=== PATIENT | male | born 1975 | race Caucasian/White ===

== ENCOUNTER 2021-11-12 08:06 | Outpatient (REF) | payer OTHER, SELFPAY ==
[2021-11-12 11:19] LABS: Alanine Aminotransferase 22 U/L (0-40); Albumin Level 4.1 g/dL (3.5-5.0); Alkaline Phosphatase 40 U/L (39-117); Anion Gap 10 (12-20); Aspartate Amino Transferase 16 U/L (5-37); Bilirubin Total 0.5 mg/dL (0.0-1.0); Blood Urea Nitrogen 15 mg/dL (9-16); Calcium 9.3 mg/dL (8.4-10.2); Carbon Dioxide 29 mmol/L (22-29); Chloride 104 mmol/L (96-108); Cholesterol 237 mg/dL; Estimated Glomerular Filt Rate > 60; Glucose Fasting 104 mg/dL (60-99); HDL Cholesterol 46 mg/dL; LDL Cholesterol Calculated 152 mg/dl; Potassium 4.4 mmol/L (3.3-5.1); Sodium 139 mmol/L (135-145); Total Protein 6.8 g/dL (6.5-8.0); Triglycerides 198 mg/dL
[2021-11-12 11:28] LABS: TSH reflex Free T4 1.06 uIU/mL (0.32-4.0)
[2021-11-12 12:30] LABS: Prostate Specific Antigen Scr 0.38 ng/mL (<0.05-4.0)
== END 2021-11-12 08:07 | disposition home or self-care (01) ==
LOC: HO.WFDLDS 08:06
PROVIDERS: Visit Provider Family Medicine
DX: Z00.00 Encounter for general adult medical examination without abnormal findings (principal); Z12.5 Encounter for screening for malignant neoplasm of prostate
CPT/HCPCS: 36415; 80053; 80061; 84153; 84443

== ENCOUNTER 2023-10-18 08:34 | Outpatient (AMB) | payer OTHER, SELFPAY ==
--- NOTE | 2023-10-18 08:37 | MHC.PC.OV ---
Vital Signs 10/18/23 08:38 Height 5 ft 11 in Weight 190 lb 4 oz BMI 26.5 BP 124/78 Blood Pressure Location Rt brachial Position Sitting Respiration 13 Pulse 76 Pulse Source Pulse Oximeter Temp 98 F Temp Source Temporal Artery Scan Pulse Oximetry (%) 97 Oxygen Delivery Method Room Air Intake Visit Reasons: Annual PE Yacht Hand Required: No Accompanied by: Self / Same As Patient Allergies No Known Allergies Allergy (Verified 10/18/23 08:51) Tobacco use date assessed: 10/18/23 Dental Screening Dental Screen Date: 10/18/23 Did you have a dental visit in the last 12 months?: Yes Did you have a dental problem in the last 6 months where you did not have access to dental care?: No Was dental information given to patient?: Patient has dentist HPI HPI Comments History of Present Illness Details 48 y/o presents for a extended physical exam He denies significant medical history He is not currently taking medications He notes situational anxiety. He reports significant work-related anxiety. He notes GI upset and vomiting in the morning, 3-4 times a week, and attributes this to anxiety. He notes that his son was recently diagnosed with PTSD and anxiety. He states that he just let his anxiety work itself out. He denies depression. He is interested in taking medication for his anxiety. He is not interesting in psychotherapy at this time due to busy work and personal schedules He notes that he has never had a colonoscopy done He has not been vaccinated for shingles He is up-to-date on the flu vaccine [facility] Medical History (Updated 10/18/23 @ 09:19 by Nik Amador CNP) No pertinent past medical history Surgical History (Updated 10/18/23 @ 08:47 by Keyla Doyle MA) No pertinent past surgical history Social History Housing: House Patient Tobacco Use Status: Never used Tobacco e-Cigarette/Vaping Use: Never Used Second Hand Smoke Exposure: No service: No Current occupational status: employed 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 1. Little interest or pleasure in doing things: not at all 2. Feeling down, depressed, or hopeless: several days 3. Trouble falling or staying asleep, or sleeping too much: nearly every day (Staying asleep) 4. Feeling tired or having little energy: nearly every day 5. Poor appetite or overeating: not at all 6. Feeling bad about yourself - or that you are a failure or have let yourself or your family down: several days 7. Trouble concentrating on things, such as reading the newspaper or watching television: not at all 8. Moving or speaking so slowly that other people could have noticed. Or the opposite - being so fidgety or restless that you have been moving around a lot more than usual: not at all 9. Thoughts that you would be better off or of hurting yourself in some way: not at all Total score: 8 Depression Screening Interpretation: Positive Depression Screening Follow-up: Existing condition and New Medication prescribed Depression Screening Done: Yes 71877 - PHQ-9 Billing: Yes Source: Developed by Drs. Gigi Rae, Linh Felix, Erasmo West and colleagues, with an educational orula from [employer]. Thrive Questionnaire Date Thrive assessed: 10/18/23 I am a: Patient What is your living situation today?: I have a steady place to live Within the past 12 months, did the food you bought not last and you didn't have the money to get more?: Never true Within the past 12 months, did you worry whether your food would run out before you got money to buy more?: Never true Do you have trouble paying for medicines?: No Do you have trouble getting transportation to medical appointments?: No Do you have trouble paying your heating and electricity bill?: No Do you have trouble taking care of your child, family member or friend?: No Do you have trouble with day-to-day activities such as bathing, preparing meals, shopping, managing finances, etc.?: No Are you currently unemployed and looking for a job?: No Are you interested in more education?: No Please select the resources that you would like help with: None Currently or been in a relationship where the following occur: no concerns reported THRIVE Score: 0 AUDIT C Alcohol Use Questionnaire (AUDIT-C) 1. How often do you have a drink containing alcohol?: 2-4 times a month 2. How many drinks containing alcohol do you have on a typical day when you are drinking?: 1 or 2 3. How often do you have six or more drinks on one occasion?: Never Total Score: 2 ARMIN-7 AMB Questionnaire ARMIN-7 Date AMRIN - 7 assessed: 10/18/23 Feeling nervous, anxious, or on edge: 3 = Nearly every day Not being able to stop or control worryin = Not at all Worrying too much about different things: 0 = Not at all Trouble relaxin = Several days Being so restless that it is hard to sit still: 0 = Not at all Becoming easily annoyed or irritable: 1 = Several days Feeling afraid as if something awful might happen: 0 = Not at all Total ARMIN-7 score (0-4 normal; 5-9 mild; 10-14 moderate; 15-21 severe): 5 Source: Developed by Drs. Gigi Rae, Linh Felix, Erasmo West and colleagues, with an educational roula from [employer]. ARMIN-7 Assessment Billing ARMIN-7 Assessment Tool: ARMIN-7 Assessment 40744 Review of Systems Const Details: Denies chills, Denies fatigue, Denies fever(s), Denies headache(s) and Denies weakness HEENT Denies change in vision, Denies dizziness, Denies headache(s), Denies hearing loss, Denies nasal congestion, Denies sinus pain, Denies sinus pressure and Denies sore throat Card Denies chest pain, Denies lightheadedness, Denies dyspnea and Denies other (palpitations) Resp Denies cough, Denies dyspnea and Denies wheezing GI Denies abdominal pain, Denies melena, Denies hematochezia, Denies change in bowel habits, Denies dyspepsia and Denies nausea Denies hematuria and Denies dysuria Musc Denies abnormal gait, Denies myalgias, Denies arthralgias, Denies numbness and Denies tingling Skin/Breast Denies rash, Denies unusual bruising and Denies wounds Neuro Denies abnormal gait, Denies dizziness, Denies headache(s), Denies memory loss, Denies numbness, Denies Sensory deficit (Neuro), Denies tingling and Denies weakness Psych Reports anxiety, Denies depression and Denies memory loss Endo Denies cold intolerance, Denies fatigue, Denies heat intolerance, Denies polydipsia and Denies polyuria Thomas/Lymph Denies easy bleeding and Denies easy bruising Aller/Immun Denies wheezing Physical exam (Primary Care) Vital Signs: Last Vital Signs Temp 98 F 10/18/23 08:38 Pulse 76 10/18/23 08:38 Resp 13 10/18/23 08:38 BP 124/78 10/18/23 08:38 Pulse Ox 97 10/18/23 08:38 Oxygen Delivery Method Room Air 10/18/23 08:38 BMI result Body Mass Index 26.5 Tobacco/Smoking Status: Tobacco use Status Tobacco use date assessed 01/08/22 01/08/22 11:27 Patient Tobacco Use Status Never used Tobacco 01/08/22 11:27 Tobacco use type 11/10/21 10:54 e-Cigarette/Vaping Use Never Used 01/08/22 11:27 Depression Screening Interpretation: Positive Depression Screening Follow-up: Existing condition and New Medication prescribed Currently or been in a relationship where the following occur: no concerns reported Const Other: General: no acute distress, well developed, alert and awake Nutritional Appearance: well nourished Orientation/consciousness: patient oriented x3 HENMT Head: Yes normocephalic and Yes atraumatic Ears: hearing grossly normal bilaterally and TM's normal bilaterally General nose exam: Normal external nose present and Normal nares present Mouth: Normal oral and palatal mucosa present and moist mucous membranes Teeth and gingiva: dentition normal Throat: Yes oropharynx normal Eyes Pupils: Equal, round and reactive pupils present and Pupil accommodation reflex normal EOM: EOMs intact bilaterally Neck Neck: Yes normal visual inspection, Yes no lymphadenopathy and Yes trachea midline Thyroid: Thyroid normal Carotids: no bruits Lymphatic: no lymphadenopathy noted Chest Chest palpation & inspection: normal inspection of the chest Resp Effort & Inspection: normal respiratory effort Auscultation: clear to auscultation bilaterally Cardio Rate: regular rate Rhythm: regular rhythm Heart sounds: S1 normal heart sound present, S2 normal heart sound present, no gallops, no murmurs and no rubs Bruits: no abdominal aortic bruits and no carotid bruits GI Palpation (GI): No Abdominal aortic bruit present, Soft to palpation, nontender, No hepatosplenomegaly present and No Rebound tenderness present Auscultation: normal bowel sounds General: Yes no CVA tenderness Back/Spine/Pelvis Back: no CVA tenderness Cervical Spine: cervical ROM normal and No Cervical spine tenderness Thoracic/Lumbar Spine: thoraco-lumbar ROM normal, No pain with thoraco-lumbar ROM, No thoracic spinal tenderness and No lumbar spinal tenderness Skin General: warm and dry. Normal skin color. Normal skin turgor Lesions: no lesions Rashes: no rashes Trauma: no lacerations or abrasions Wounds: no wounds Nails: normal Neuro General: patient oriented x3, gait normal and CN's II-XI intact bilaterally Cranial nerves: Yes Equal, round and reactive pupils present Cognition (Neuro): normal cognition Gait exam (Neuro): Normal gait present Motor exam (neuro): 5/5 motor strength present throughout Sensory Exam: No Sensory deficit (Neuro) Deep tendon reflexes (DTR's): Right patellar reflex intensity grade: 2+ and Left patellar reflex intensity grade: 2+ Extrem General: Yes normal to inspection, No edema and No calf tenderness Psych Appearance: grossly normal Affect: normal affect Attitude: cooperative Thought process: Normal thought process present Assessment and Plan Assessment & Plan (1) Adult general medical exam: Code(s): Z00.00 - Encounter for general adult medical examination without abnormal findings Plan: No significant physical restrictions or limitations noted Continue current treatment regimen Healthy diet and routine exercise encouraged Follow-up in 2 weeks for anxiety and labs review Return sooner with worsening or new symptoms Verbalized understanding and agreed with treatment plan (2) Anxiety and depression: Code(s): F41.9 - Anxiety disorder, unspecified; F32.A - Depression, unspecified Plan: Reports situational anxiety symptoms which is mostly related to work PHQ-9 and ARMIN-7 scores revealed mild anxiety Lexapro ordered. Take as prescribed Routine exercise encouraged Follow-up in 2 weeks or return sooner with worsening or new symptoms Verbalized understanding and agreed with treatment plan (3) Laboratory exam ordered as part of routine general medical examination: Code(s): Z00.00 - Encounter for general adult medical examination without abnormal findings Plan: Fasting labs ordered as part of a complete physical exam. Advised to fast for at least 10 hours before getting labs drawn. May drink water Verbalized understanding and agreed with treatment plan. (4) Screening for colon cancer: Code(s): Z12.11 - Encounter for screening for malignant neoplasm of colon Plan: He notes that he has never had a colonoscopy done Colonoscopy referral made (5) Vaccine counseling: Code(s): Z71.85 - Encounter for immunization safety counseling Plan: He has not been vaccinated for shingles Instructed on importance of vaccination and encouraged to get vaccinated for shingles Verbalized understanding and agreed with the plan Orders: Orders Lipid Panel Today Z00.00 - Encounter for general adult medical examination without abnormal findings TSH reflex Free T4 Today Z00.00 - Encounter for general adult medical examination without abnormal findings PSA, Ultra Sensitive Today Z00.00 - Encounter for general adult medical examination without abnormal findings Comprehensive [place]. Panel Fast Today Z00.00 - Encounter for general adult medical examination without abnormal findings Complete Blood Count Auto Diff Today Z00.00 - Encounter for general adult medical examination without abnormal findings UA CC w/rflx Micro + Cult Today Z00.00 - Encounter for general adult medical examination without abnormal findings Referrals Gastroenterology Referral Z12.11 - Encounter for screening for malignant neoplasm of colon Medications: New escitalopram oxalate (Lexapro) 10 mg PO DAILY 30 days 30 tabs 3RF Coding Level of Care Code Est Pt Prev Care 40-64y(84120) Diagnoses Adult general medical exam Z00.00 Anxiety and depression F41.9; F32.A Laboratory exam ordered as part of routine general medical examination Z00.00 Screening for colon cancer Z12.11 Vaccine counseling Z71.85 Additional Codes ARMIN-7 Assessment Billing - ARMIN-7 Assessment Tool: ARMIN-7 Assessment [id number] ([id number])
[2023-10-18 08:38] VITALS: BP 124/78; PULSE 76; RESP 13; TEMP 36.6; O2SAT 97; BMI 26.5
== END 2023-10-18 09:18 | disposition home or self-care (01) ==
PROVIDERS: PCP Family Medicine; Visit Provider Nurse Practitioner Family
DX: Z00.00 Encounter for general adult medical examination without abnormal findings (principal); F41.9 Anxiety disorder, unspecified; F32.A Depression, unspecified
CPT/HCPCS: 96127; 99396

== ENCOUNTER 2023-10-23 08:12 | Outpatient (REF) | payer OTHER, SELFPAY ==
[2023-10-23 08:38] LABS: MANUAL DIFF FLAG NO
[2023-10-23 09:16] LABS: Basophils Percent Auto 0.8 % (0-2); Eosinophils Absolute Auto 0.1 X10*3/uL (0.0-0.4); Eosinophils Percent Auto 2.7 % (0-4); Hematocrit 49.2 % (42.0-52.0); Hemoglobin 16.5 g/dl (14.0-18.0); Lymphocytes Absolute Auto 1.8 X10*3/uL (1.2-4.9); Lymphocytes Percent Auto 33.7 % (20-40); Mean Corpuscular HGB Conc 33.5 g/dl (31.0-36.0); Mean Corpuscular Hemoglobin 31.1 pg (27.0-33.0); Mean Corpuscular Volume 92.7 fL (80.0-98.0); Mean Platelet Volume 10.7 fL (9.4-12.4); Monocytes Absolute Auto 0.5 X10*3/uL (0.1-1.2); Monocytes Percent Auto 9.4 % (2-11); Neutrophils Absolute Auto 2.8 x10*3/uL (2.0-8.3); Neutrophils Percent Auto 53.4 % (45-73); Platelet Count 246 X10*3/uL (160-400); Red Blood Count 5.31 X10*6/uL (4.60-5.80); Red Cell Distribution Width 12.7 % (11.0-16.0); White Blood Count 5.2 X10*3/uL (4.8-10.8)
[2023-10-23 10:14] LABS: Alanine Aminotransferase 38 U/L (0-40); Albumin Level 4.5 g/dL (3.5-5.0); Alkaline Phosphatase 42 U/L (39-117); Anion Gap 12 (12-20); Aspartate Amino Transferase 18 U/L (5-37); Bilirubin Total 0.5 mg/dL (0.0-1.0); Blood Urea Nitrogen 20 mg/dL (9-16); Calcium 9.8 mg/dL (8.4-10.2); Carbon Dioxide 29 mmol/L (22-29); Chloride 107 mmol/L (96-108); Cholesterol 239 mg/dL (<200); Estimated Glomerular Filt Rate > 60; Glucose Fasting 104 mg/dL (60-99); HDL Cholesterol 46 mg/dL (>40); LDL Cholesterol Calculated 170 mg/dL (<100); Potassium 4.8 mmol/L (3.3-5.1); Sodium 143 mmol/L (135-145); Total Protein 7.7 g/dL (6.5-8.0); Triglycerides 117 mg/dL (<150)
[2023-10-23 10:30] LABS: TSH reflex Free T4 0.58 uIU/mL (0.32-4.0)
[2023-10-23 10:39] LABS: Appearance Urine Clear; Color Urine Yellow; Glucose Urine UA Negative (Negative); Leukocyte Esterase Urine Negative (Negative); Nitrite Urine Negative (Negative); Specific Gravity - Urine 1.015 (1.005-1.025); Urine Blood Negative (Negative); Urine Ketones Negative (Negative); Urine Protein Negative (Neg-Trace)
[2023-10-28 12:32] LABS: PSA, Ultra Sensitive 0.31 ng/mL
== END 2023-10-23 08:13 | disposition home or self-care (01) ==
LOC: HO.LAB 08:12
PROVIDERS: PCP Family Medicine; Visit Provider Nurse Practitioner Family
DX: Z00.00 Encounter for general adult medical examination without abnormal findings (principal); Z12.5 Encounter for screening for malignant neoplasm of prostate
CPT/HCPCS: 36415; 80053; 80061; 81003; 84153; 84443; 85025

== ENCOUNTER 2023-11-02 14:38 | Outpatient (AMB) | payer OTHER, SELFPAY ==
[2023-11-02 14:49] VITALS: BP 120/76; PULSE 62; O2SAT 96; BMI 25.9
--- NOTE | 2023-11-02 14:49 | MHC.PC.OV ---
Vital Signs 11/02/23 14:49 Height 5 ft 11 in Weight 185 lb 6 oz BMI 25.9 BP 120/76 Blood Pressure Location Rt brachial Position Sitting Pulse 62 Pulse Source Pulse Oximeter Pulse Oximetry (%) 96 Oxygen Delivery Method Room Air Intake Visit Reasons: anxiety, labs review Intake Note: Patient is here for lab review and anxiety. Patient states the medication for anxiety makes him feel awful, would like left foot looked at, is painful from old injury. Allergies No Known Allergies Allergy (Verified 11/02/23 14:52) Tobacco use date assessed: 11/02/23 HPI anxiety, labs review HPI Details 48 y/o male presents to f/u anxiety and labs. Labs were drawn 10/23/23. Reviewed labs with pt. Elevated fasting glucose of 104. Last A1c in December 2021 5.3%. Triglycerides 117. TC 239. LDL 170. HDL 46. Pt reports lexapro had been bothering his stomach. Pt also notes lexapro has made him feel worse mood ponce. 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 1. Little interest or pleasure in doing things: more than half the days 2. Feeling down, depressed, or hopeless: several days 3. Trouble falling or staying asleep, or sleeping too much: not at all 4. Feeling tired or having little energy: several days 5. Poor appetite or overeating: several days 6. Feeling bad about yourself - or that you are a failure or have let yourself or your family down: not at all 7. Trouble concentrating on things, such as reading the newspaper or watching television: several days 8. Moving or speaking so slowly that other people could have noticed. Or the opposite - being so fidgety or restless that you have been moving around a lot more than usual: not at all 9. Thoughts that you would be better off or of hurting yourself in some way: not at all Total score: 6 Source: Developed by Drs. Gigi Rae, Linh Felix, Erasmo West and colleagues, with an educational roula from [employer]. Thrive Questionnaire Date Thrive assessed: 10/18/23 ARMIN-7 AMB Questionnaire ARMIN-7 Date ARMIN - 7 assessed: 11/02/23 Feeling nervous, anxious, or on edge: 3 = Nearly every day Not being able to stop or control worryin = Not at all Worrying too much about different things: 3 = Nearly every day Trouble relaxin = Not at all Being so restless that it is hard to sit still: 0 = Not at all Becoming easily annoyed or irritable: 0 = Not at all Feeling afraid as if something awful might happen: 0 = Not at all Total ARMIN-7 score (0-4 normal; 5-9 mild; 10-14 moderate; 15-21 severe): 6 Source: Developed by Drs. Gigi Rae, Linh Felix, Erasmo West and colleagues, with an educational roula from [employer]. Review of Systems Const Denies chills, Denies fatigue, Denies fever(s), Denies headache(s) and Denies weakness ENT Denies dizziness and Denies headache(s) Card Denies dyspnea Resp Denies cough, Denies dyspnea, Denies wheezing and Denies other (shortness of breath) Musc Denies numbness and Denies tingling Neuro Denies dizziness, Denies headache(s), Denies numbness, Denies tingling and Denies weakness Psych Reports anxiety Endo Denies fatigue Aller/Immun Denies wheezing Physical exam (Primary Care) Vital Signs: Last Vital Signs Pulse 62 11/02/23 14:49 BP 120/76 11/02/23 14:49 Pulse Ox 96 11/02/23 14:49 Oxygen Delivery Method Room Air 11/02/23 14:49 BMI result Body Mass Index 25.9 Tobacco/Smoking Status: Tobacco use Status Tobacco use date assessed 11/02/23 11/02/23 15:01 Patient Tobacco Use Status Never used Tobacco 11/02/23 14:50 Tobacco use type 10/18/23 09:14 e-Cigarette/Vaping Use Never Used 11/02/23 14:50 PHQ-9: PHQ-9 Score PHQ-9: Total score 6 11/02/23 15:23 Thrive Assessment: Date of Thrive Assessment Date Thrive assessed 10/18/23 11/02/23 14:50 Const General: well developed; No acute distress Nutritional Appearance: well nourished Orientation/consciousness: patient oriented x3 HENMT Head: Yes normocephalic and Yes atraumatic Eyes General: appearance normal, both eyes and all related structures Pupils: Equal, round and reactive pupils present EOM: EOMs intact bilaterally Resp Effort & Inspection: normal respiratory effort Neuro General: patient oriented x3 and gait normal Cranial nerves: Yes Equal, round and reactive pupils present Psych Affect: normal affect Assessment and Plan Assessment & Plan (1) Mixed hyperlipidemia: Code(s): E78.2 - Mixed hyperlipidemia Plan: He?will?work?at?a?diet?low?in?saturated?fats?and?cholesterol Will?follow-up?at?next?visit?and?if?he?has?not?been?able?to?make?a?significant?change?in?his?lipids,?we?will?discuss?medications (2) Elevated fasting glucose: Code(s): R73.01 - Impaired fasting glucose Plan: Mildly?elevated.??His?A1c?was?within?normal?limits?in?2021 Will?check?A1c?at?upcoming?visit (3) Anxiety and depression: Code(s): F41.9 - Anxiety disorder, unspecified; F32.A - Depression, unspecified Plan: Ongoing?anxiety?and?depression.??Lexapro?does?not?seem?to?be?helping?much?and?may?be?making?him?feel?worse. Will?switch?to?sertraline Can?try?some?hydroxyzine?in?the?evenings Will?follow-up?in?4-6?weeks Advised?him?if?sertraline?is?making?him?feel?worse?he?can?discontinue?this?and?call?me. (4) Screening for colon cancer: Code(s): Z12.11 - Encounter for screening for malignant neoplasm of colon Plan: He?is?referred?to?Gastroenterology (5) Foot pain: Code(s): M79.673 - Pain in unspecified foot Plan: Left?foot?pain?at?medial?arch?and?just?inferior?to?medial?malleolus Referred?to?Podiatry Orders: Orders Lipid Panel Today E78.2 - Mixed hyperlipidemia, Z00.00 - Encounter for general adult medical examination without abnormal findings Comprehensive [place]. Panel Fast Today E78.2 - Mixed hyperlipidemia, Z00.00 - Encounter for general adult medical examination without abnormal findings Medications: New sertraline 50 mg PO DAILY 30 days 30 tabs 2RF hydroxyzine HCl 50 mg PO DAILY 30 days PRN 30 tabs 0RF anxiety Discontinued escitalopram oxalate (Lexapro) Discontinued Reason: Doctor's Order 10 mg PO DAILY 30 days 30 tabs 3RF Coding Level of Care Code Est Pt Level 4 (89989) Diagnoses Mixed hyperlipidemia E78.2 Elevated fasting glucose R73.01 Anxiety and depression F41.9; F32.A Screening for colon cancer Z12.11 Foot pain M79.673
== END 2023-11-02 15:51 | disposition home or self-care (01) ==
PROVIDERS: PCP Family Medicine; Visit Provider Family Medicine
DX: E78.2 Mixed hyperlipidemia (principal); R73.01 Impaired fasting glucose; F41.9 Anxiety disorder, unspecified; F32.A Depression, unspecified; Z12.11 Encounter for screening for malignant neoplasm of colon; M79.673 Pain in unspecified foot
CPT/HCPCS: 99214

== ENCOUNTER 2023-12-18 07:29 | Outpatient (REF) | payer OTHER, SELFPAY ==
[2023-12-18 09:16] LABS: Alanine Aminotransferase 22 U/L (0-40); Albumin Level 4.4 g/dL (3.5-5.0); Alkaline Phosphatase 44 U/L (39-117); Anion Gap 13 (12-20); Aspartate Amino Transferase 19 U/L (5-37); Bilirubin Total 0.9 mg/dL (0.0-1.0); Blood Urea Nitrogen 23 mg/dL (9-16); Calcium 9.3 mg/dL (8.4-10.2); Carbon Dioxide 24 mmol/L (22-29); Chloride 105 mmol/L (96-108); Cholesterol 247 mg/dL (<200); Estimated Glomerular Filt Rate > 60; Glucose Fasting 87 mg/dL (60-99); HDL Cholesterol 46 mg/dL (>40); LDL Cholesterol Calculated 176 mg/dL (<100); Potassium 4.3 mmol/L (3.3-5.1); Sodium 138 mmol/L (135-145); Total Protein 7.3 g/dL (6.5-8.0); Triglycerides 125 mg/dL (<150)
== END 2023-12-18 07:30 | disposition home or self-care (01) ==
LOC: HO.LAB 07:29
PROVIDERS: PCP Family Medicine; Visit Provider Family Medicine
DX: Z00.00 Encounter for general adult medical examination without abnormal findings (principal); E78.2 Mixed hyperlipidemia
CPT/HCPCS: 36415; 80053; 80061

== ENCOUNTER 2023-12-20 14:52 | Outpatient (AMB) | payer OTHER, SELFPAY ==
[2023-12-20 14:53] VITALS: BP 118/72; PULSE 68; O2SAT 98; BMI 25.0
--- NOTE | 2023-12-20 14:53 | MHC.PC.OV ---
Vital Signs 12/20/23 14:53 Height 5 ft 11 in Weight 179 lb 8 oz BMI 25.0 BP 118/72 Blood Pressure Location Lt brachial Position Sitting Pulse 68 Pulse Source Pulse Oximeter Pulse Oximetry (%) 98 Oxygen Delivery Method Room Air Intake Visit Reasons: f/u anxiety/depression Intake Note: Patient is here rto follow up on depression and anxiety today. Allergies No Known Allergies Allergy (Verified 12/20/23 14:56) Tobacco use date assessed: 11/02/23 Dental Screening Dental Screen Date: 12/20/23 HPI f/u anxiety/depression HPI Details 48 y/o male presents to f/u anxiety/depression. Pt notes he has been doing well with sertraline 50mg. PHQ-9 6 and ARMIN-7 7 today. Labs were drawn 12/18/23. Reviewed labs with pt. LDL worsened from 170 to 176. HPI Comments History of Present Illness Details Documentation assistance for Williams Lentz MD, was provided by Jak Parnell, Feed Preparation Operator on 12/20/2023 3:22 PM EST. I, Dr. Lentz, have read, observed, and verified documentation. 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 1. Little interest or pleasure in doing things: not at all 2. Feeling down, depressed, or hopeless: not at all 3. Trouble falling or staying asleep, or sleeping too much: nearly every day 4. Feeling tired or having little energy: nearly every day 5. Poor appetite or overeating: not at all 6. Feeling bad about yourself - or that you are a failure or have let yourself or your family down: not at all 7. Trouble concentrating on things, such as reading the newspaper or watching television: not at all 8. Moving or speaking so slowly that other people could have noticed. Or the opposite - being so fidgety or restless that you have been moving around a lot more than usual: not at all 9. Thoughts that you would be better off or of hurting yourself in some way: not at all Total score: 6 Depression Screening Interpretation: Positive Depression Screening Done: Yes 13596 - PHQ-9 Billing: Yes Source: Developed by Drs. Gigi Rae, Linh Felix, Erasmo West and colleagues, with an educational roula from [employer]. Thrive Questionnaire Date Thrive assessed: 10/18/23 ARMIN-7 AMB Questionnaire ARMIN-7 Date ARMIN - 7 assessed: 12/20/23 Feeling nervous, anxious, or on edge: 3 = Nearly every day Not being able to stop or control worryin = Not at all Worrying too much about different things: 3 = Nearly every day Trouble relaxin = Not at all Being so restless that it is hard to sit still: 0 = Not at all Becoming easily annoyed or irritable: 1 = Several days Feeling afraid as if something awful might happen: 0 = Not at all Total ARMIN-7 score (0-4 normal; 5-9 mild; 10-14 moderate; 15-21 severe): 7 Source: Developed by Drs. Gigi Rae, Linh Felix, Erasmo West and colleagues, with an educational roula from [employer]. ARMIN-7 Assessment Billing ARMIN-7 Assessment Tool: ARMIN-7 Assessment 85410 Review of Systems Const Denies chills, Denies fatigue, Denies fever(s), Denies headache(s) and Denies weakness ENT Denies dizziness and Denies headache(s) Card Denies dyspnea Resp Denies cough, Denies dyspnea, Denies wheezing and Denies other (shortness of breath) Musc Denies numbness and Denies tingling Neuro Denies dizziness, Denies headache(s), Denies numbness, Denies tingling and Denies weakness Psych Denies anxiety and Denies depression Endo Denies fatigue Aller/Immun Denies wheezing Physical exam (Primary Care) Vital Signs: Last Vital Signs Pulse 68 12/20/23 14:53 BP 118/72 12/20/23 14:53 Pulse Ox 98 12/20/23 14:53 Oxygen Delivery Method Room Air 12/20/23 14:53 BMI result Body Mass Index 25.0 Tobacco/Smoking Status: Tobacco use Status Tobacco use date assessed 11/02/23 12/20/23 15:02 Patient Tobacco Use Status Never used Tobacco 12/20/23 15:02 Tobacco use type 11/26/23 11:38 e-Cigarette/Vaping Use Never Used 12/20/23 15:02 PHQ-9: PHQ-9 Score PHQ-9: Total score 6 12/20/23 15:14 Depression Screening Interpretation: Positive Thrive Assessment: Date of Thrive Assessment Date Thrive assessed 10/18/23 12/20/23 15:02 Const General: well developed; No acute distress Nutritional Appearance: well nourished Orientation/consciousness: patient oriented x3 HENMT Head: Yes normocephalic and Yes atraumatic Eyes General: appearance normal, both eyes and all related structures Pupils: Equal, round and reactive pupils present EOM: EOMs intact bilaterally Resp Effort & Inspection: normal respiratory effort Auscultation: clear to auscultation bilaterally Cardio Rate: regular rate Rhythm: regular rhythm Heart sounds: S1 normal heart sound present, S2 normal heart sound present, no gallops, no murmurs and no rubs Neuro General: patient oriented x3 and gait normal Cranial nerves: Yes Equal, round and reactive pupils present Psych Affect: normal affect Assessment and Plan Assessment & Plan (1) Anxiety and depression: Code(s): F41.9 - Anxiety disorder, unspecified; F32.A - Depression, unspecified Plan: Improved?with?sertraline?50?mg?daily Will?increase?this?to?75?mg?daily Can?try?hydroxyzine?p.r.n. 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 Has?had?1?steroid?injection?and?has?another?scheduled Reviewed?exercises?with?patient Medications: New atorvastatin 10 mg PO BEDTIME 90 days 90 tabs 1RF Changed From sertraline 50 mg PO DAILY 30 days 30 tabs 2RF To sertraline 75 mg (1.5 x 50 mg) PO DAILY 90 days 135 tabs 2RF Coding Level of Care Code Est Pt Level 4 (93090) Diagnoses Anxiety and depression F41.9; F32.A Mixed hyperlipidemia E78.2 Foot pain M79.673 Additional Codes ARMIN-7 Assessment Billing - ARMIN-7 Assessment Tool: ARMIN-7 Assessment 59995 ([id number])
== END 2023-12-20 15:32 | disposition home or self-care (01) ==
PROVIDERS: PCP Family Medicine; Visit Provider Family Medicine
DX: E78.2 Mixed hyperlipidemia (principal); F41.9 Anxiety disorder, unspecified; F32.A Depression, unspecified; M79.672 Pain in left foot
CPT/HCPCS: 96127; 99214

== ENCOUNTER 2023-12-28 14:49 | Outpatient (AMB) | payer OTHER, SELFPAY ==
--- NOTE | 2023-12-28 14:53 | MHC.OFFVIS ---
Intake Vital Signs 12/28/23 14:54 Height 5 ft 11 in Weight 179 lb BMI 25.0 BP 130/82 Blood Pressure Location Lt brachial Position Sitting Pulse 68 Intake Visit Reasons: Colonoscopy Screening Intake Note: Patient new consult for pre colonoscopy screening. Patient denies any GI issues. Youth Ministry Director Required: No Accompanied by: Self / Same As Patient Allergies No Known Allergies Allergy (Verified 12/28/23 14:53) Medication List - Last Reconciled 12/28/23 by Kristel Luu PA-C atorvastatin 10 mg PO BEDTIME 90 days hydroxyzine HCl 50 mg PO DAILY PRN 30 days sertraline 75 mg (1.5 x 50 mg) PO DAILY 90 days HPI HPI Comments History of Present Illness Details A 48 y/o male referred for screening colonoscopy-He has no GI complaint He is healthy other than anxiety however manages well He has a good appetite Normal bowel pattern No cardiac or respiratory issues No nausea, vomiting, abdominal pain, hematemesis, hematochezia fever chills PFSH Medical History (Reviewed 11/02/23 @ 14:53 by Marichuy Ruiz [facility]) No pertinent past medical history Surgical History No pertinent past surgical history Social History Housing: House Patient Tobacco Use Status: Never used Tobacco e-Cigarette/Vaping Use: Never Used Second Hand Smoke Exposure: No service: No Current occupational status: employed 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 Current occupational exposures/hazards: No Cognitive needs: No Hearing needs: No Vision needs: Yes Review of Systems Const All systems reviewed & are unremarkable except as noted in HPI and below GI Denies abdominal pain, Denies change in bowel habits, Denies nausea and Denies vomiting Physical Exam Vital Signs: Last Vital Signs Pulse 68 12/28/23 14:54 BP 130/82 12/28/23 14:54 BMI result Body Mass Index 25.0 Const General: cooperative, healthy appearing, comfortable and no acute distress Orientation/consciousness: patient oriented x3 Limitations: no limitations Eyes Sclerae: sclerae normal Resp Effort & Inspection: normal respiratory effort and able to speak in complete sentences Auscultation: clear to auscultation bilaterally, no rales, no rhonchi and no wheezes Cardio Rate: regular rate Rhythm: regular rhythm Heart sounds: S1 normal heart sound present and S2 normal heart sound present GI Palpation (GI): Soft to palpation and nontender Auscultation: normal bowel sounds Neuro General: patient oriented x3 Extrem General: Yes full ROM Psych Appearance: grossly normal and well kempt Mental Status: mental status grossly normal Speech and movement: Normal speech and movement present and Clear speech present Affect: normal affect and Anxious affect present Attitude: cooperative Thought content: Normal thought content present Assessment & Plan Assessment & Plan (1) Screening for colon cancer: Comment: Very pleasant Gent no GI complaint Discussed procedure, rare risks need for escorted due to anesthesia Code(s): Z12.11 - Encounter for screening for malignant neoplasm of colon Plan: Index screening colonoscopy (2) Family history of colon cancer: Comment: Paternal grandfather age unknown Code(s): Z80.0 - Family history of malignant neoplasm of digestive organs Plan index screening colonoscopy mg prep Orders: Orders Colonoscopy - GI Use Only 12/28/23 Z12.11 - Encounter for screening for malignant neoplasm of colon Medications: New bisacodyl (Dulcolax (bisacodyl)) Day before procedure @ 12 noon Take 4 tablets by mouth followed by large glass of water 20 mg (4 x 5 mg) PO ONCE PRN 4 tabs 0RF colonoscopy prep 1 day Z12.11 - Encounter for screening for malignant neoplasm of colon polyethylene glycol 3350 (Miralax) Take as directed by mouth the day before your procedure. 238 grams PO ONCE PRN 238 grams 0RF laxative effect 1 day Patient Instructions: Index screening colonoscopy MG prep- reviewed, literature given Encouraged to call questions or concerns Appreciate the opportunity assist in the care this pleasant Gent Coding Level of Care Code New Pt Level 3 (87318) Diagnoses Screening for colon cancer Z12.11 Family history of colon cancer Z80.0 Time Spent (min) 30
[2023-12-28 14:54] VITALS: BP 130/82; PULSE 68; BMI 25.0
== END 2023-12-28 16:21 | disposition home or self-care (01) ==
PROVIDERS: PCP Family Medicine; Visit Provider Physician Assistant
DX: Z01.818 Encounter for other preprocedural examination (principal); Z12.11 Encounter for screening for malignant neoplasm of colon; Z80.0 Family history of malignant neoplasm of digestive organs
CPT/HCPCS: S0285

== ENCOUNTER → 2023-12-28 14:49 | Outpatient (BNVA) | payer OTHER, SELFPAY | PROVIDERS: PCP Family Medicine; Visit Provider Physician Assistant ==

== ENCOUNTER 2024-04-29 07:32 | Outpatient (REF) | payer OTHER, SELFPAY ==
[2024-04-29 08:15] LABS: Alanine Aminotransferase 28 U/L (0-40); Albumin Level 4.2 g/dL (3.5-5.0); Alkaline Phosphatase 41 U/L (39-117); Anion Gap 12 (12-20); Aspartate Amino Transferase 19 U/L (5-37); Bilirubin Total 0.5 mg/dL (0.0-1.0); Blood Urea Nitrogen 22 mg/dL (9-16); Calcium 9.5 mg/dL (8.4-10.2); Carbon Dioxide 27 mmol/L (22-29); Chloride 106 mmol/L (96-108); Cholesterol 143 mg/dL (<200); Estimated Glomerular Filt Rate > 60; Glucose Fasting 104 mg/dL (60-99); HDL Cholesterol 48 mg/dL (>40); LDL Cholesterol Calculated 82 mg/dL (<100); Potassium 4.3 mmol/L (3.3-5.1); Sodium 141 mmol/L (135-145); Triglycerides 65 mg/dL (<150)
== END 2024-04-29 07:33 | disposition home or self-care (01) ==
LOC: HO.LAB 07:32
PROVIDERS: PCP Family Medicine; Visit Provider Family Medicine
DX: Z00.00 Encounter for general adult medical examination without abnormal findings (principal); E78.2 Mixed hyperlipidemia
CPT/HCPCS: 36415; 80053; 80061

== ENCOUNTER 2024-06-05 09:56 | Day surgery (SDC) | payer OTHER, SELFPAY ==
--- NOTE | 2024-06-01 15:01 | P.CONAN_ITS ---
Documented by User: Josephine Romano NP 06/01/24 15:02 HPI - Anesthesia Eval Consult details Narrative: 49yo M for Colonoscopy PMFSH Active Problems Active Problems: All Active Problems Family history of colon cancer (Acute) Vaccine counseling (Acute) Anxiety and depression (Acute) Foot pain (Acute) Screening for colon cancer (Acute) Adult general medical exam (Acute) Mixed hyperlipidemia (Acute) Elevated fasting glucose (Acute) Low back pain with sciatica (Acute) History of left inguinal hernia (Acute) History of herniated intervertebral disc (Acute) Anxiety (Acute) Laboratory exam ordered as part of routine general medical examination (Acute) Surgical History Surgical History (Updated 06/05/24 @ 12:12 by Marge Padilla MD) H/O hernia repair Social History Social History (Updated 06/05/24 @ 12:15 by Marge Padilla MD) Housing: House Are you a primary medicare compliance auditor to a significant other at home: No Do you presently have visiting nurse or other home services: No Comment: Once a week Patient Tobacco Use Status: Never used Tobacco e-Cigarette/Vaping Use: Never Used Second Hand Smoke Exposure: No Substance Use Type: Marijuana service: No Current occupational status: employed 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 Current occupational exposures/hazards: No Cognitive needs: No Hearing needs: No Vision needs: Yes Meds Allergies Allergy/AdvReac Type Severity Reaction Status Date / Time No Known Allergies Allergy Verified 12/28/23 14:53 Assessment and Plan Assessment Anesthesia Assessment: Chart Reviewed Documented by User: Marge Padilla MD 06/05/24 12:15 PMFSH Active Problems Active Problems: All Active Problems Family history of colon cancer (Acute) Vaccine counseling (Acute) Anxiety and depression (Acute) Foot pain (Acute) Screening for colon cancer (Acute) Adult general medical exam (Acute) Mixed hyperlipidemia (Acute) Elevated fasting glucose (Acute) Low back pain with sciatica (Acute) History of left inguinal hernia (Acute) History of herniated intervertebral disc (Acute) Laboratory exam ordered as part of routine general medical examination (Acute) Family History Family history of problems with anesthesia: No Surgical History Surgical History (Updated 06/05/24 @ 12:12 by Marge Padilla MD) H/O hernia repair History of Problems with Anesthesia: No (Numbness of LE following surgery ) Social History Social History (Updated 06/05/24 @ 12:15 by Marge Padilla MD) Housing: House Are you a primary medicare compliance auditor to a significant other at home: No Do you presently have visiting nurse or other home services: No Comment: Once a week Patient Tobacco Use Status: Never used Tobacco e-Cigarette/Vaping Use: Never Used Second Hand Smoke Exposure: No Substance Use Type: Marijuana service: No Current occupational status: employed 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 Current occupational exposures/hazards: No Cognitive needs: No Hearing needs: No Vision needs: Yes Meds Allergies Allergy/AdvReac Type Severity Reaction Status Date / Time No Known Allergies Allergy Verified 12/28/23 14:53 Exam Height,Weight and Vital Signs: Height 5 ft 11 in Weight 79.469 kg Vital Signs Temp Pulse Resp BP Pulse Ox O2 Del Method 06/05/24 10:12 98.1 F 60 16 103/58 L 100 Room Air Airway Mallampati Class: II TM Dist: >3cm Neck ROM: Full Loose/Missing/Broken Teeth: No Heart: RRR Lungs: CTAB Assessment and Plan Assessment Anesthesia Assessment: Anesthesia Plan Discussed and Chart Reviewed Final Anesthetic Review Family History of Problems with Anesthesia: No History of Problems with Anesthesia: No (Numbness of LE following surgery ) NPO: Yes ASA Class: II Final Preanesthetic Review: No Changes in Pt Med Stat, Meds/Allgs Chart Reviewed, Consent Obtained/Reviewed and Anes Risks/Benef Reviewed Patient Risk: Low Procedure Risk: Low Assessment/Block/Sedation in SS: Assess/Block/Sedation-SS Anesthetic Plan Anesthetic Plan: TIVA Disposition: Standard PACU
[2024-06-05 10:12] VITALS: BP 103/58; PULSE 60; RESP 16; TEMP 36.7; O2SAT 100; BMI 24.4
[2024-06-05] MEDS: Lactated Ringers 1,000 ML 100 ML IVCONT (10:21)
--- NOTE | 2024-06-05 11:48 | MHC.SHP ---
Pre-Procedural Eval Section A - 24 Hr Update-Section A only Date of Service: 06/05/24 The patient is an INPATIENT: No The patient has been examined within 24 hours of the surgical procedure. The History & Physical has been completed within 30 days and I have reviewed it.: No Section B - Complete if H&P > 30 days Chief Complaint: Colon cancer screening, FH of colon cancer Relevant Family History (Specify if Yes): Yes Relevant Social History: None Present Medications: see Short Stay Collaborative assessment Medical History: Significant History (Hyperlipidemia, low back pain, anxiety and depression) History of Previous Operations: No relevant previous surgery Allergies: Allergies Allergy/AdvReac Type Severity Reaction Status Date / Time No Known Allergies Allergy Verified 12/28/23 14:53 Review of Systems Sugical H&P ROS: Negative: Constitution, Cardiovascular, Respiratory and Gastrointestinal Exam Surgical H&P Exam: Normal: Heart, Normal: Lungs, Normal: Extremities and Normal: Abdomen Plan Diagnosis/Plan: Unchanged I have reviewed the history and physical and performed a pertinent physical examination on my patient. No changes have occurred unless specified. Time Spent With Patient Time: Total time managing care of this patient today ____ minutes.
--- NOTE | 2024-06-05 12:24 | P.OPN-COLO_ITS ---
Colonoscopy Operative Note Operative Note Date of Service: 06/05/24 Narrative: COLONOSCOPY TILL CECUM WITH BIOPSIES, SNARE POLYPECTOMY AND HEMOCLIP PLACEMENT Pre-op diagnosis: Colon cancer screening (1st colonoscopy), Family hx of colon cancer (Paternal GF). Post-op diagnosis:? Colon polyps, Diverticulosis, hemorrhoids Endoscopist:? Dixie Hanson MD Anesthesia:?MAC Consent: Indications for the procedure and potential complications of bleeding, perforation, reaction to medications and missed diagnosis were discussed with the patient and informed consent was obtained. Instrument: Olympus CF H 190 L variable stiffness adult colonoscope Monitoring: Vital signs and clinical assessment, intermittent blood pressure monitoring, continuous EKG monitoring, Pulse oximetry and Carbon Dioxide monitoring were done throughout the procedure. Please see anesthesia flowsheet. Colon withdrawl time was 19 minutes. Procedure: The patient was placed in the left lateral decubitis position and pre-procedure medications were administered. After a digital rectal examination of the ano-rectum, the video colonoscope was inserted into the rectum and advanced through the colon to the cecum. The colonoscope was slowly withdrawn in a retrograde panoramic fashion and the colon mucosa was carefully examined including a retroflexed view of the rectum. Findings and interventions are described below. Procedure Difficulty: without difficulty Findings: Terminal Ileum: Not evaluated Cecum: Normal Ascending Colon: A 10-12 mm sessile polyp in the distal AC. Polyp was removed with a hot snare and polypectomy site was closed with 1 hemoclip Transverse Colon: Normal Descending Colon: Normal Sigmoid Colon: Moderate diverticulosis Rectum: A 2-3 mm diminutive appearing polyp - removed with a cold biopsy Ano-rectum: Moderate internal hemorrhoids Colon preparation: Excellent, after some irrigation. [place] Bowel Preparation Scale Right colon; 3 Transverse colon: 3 Left colon; 3 (0 = Unprepared colon segment with mucosa not seen due to solid stool that cannot be cleared. 1 = Portion of mucosa of the colon segment seen, but other areas of the colon segment not well seen due to staining, residual stool and/or opaque liquid. 2 = Minor amount of residual staining, small fragments of stool and/or opaque liquid, but mucosa of colon segment seen well. 3 = Entire mucosa of colon segment seen well with no residual staining, small fragments of stool or opaque liquid) Impression and Post Procedure Diagnosis: Colonoscopy Findings: One small and one medium sized polyps were removed Moderate diverticulosis seen in the sigmoid colon Moderate hemorrhoids on retroflexed exam. Plan: I will send a letter with biopsy results. Pt has a FU appointment on 09/05/24 with LUIS Muñoz. Repeat Colonoscopy in 3-5 years if polyps are adenomatous and due to positive family history of colon cancer. Above findings were reviewed with the patient and relevant handouts were given and the discharge area.
[2024-06-05 12:26] VITALS: BP 107/75; PULSE 55; RESP 22; TEMP 36.4; O2SAT 99
[2024-06-05 12:41] VITALS: BP 115/82; PULSE 48; RESP 20; TEMP 36.2; O2SAT 100
== END 2024-06-05 13:25 | disposition home or self-care (01) ==
PROVIDERS: PCP Family Medicine; Visit Provider Internal Medicine Gastroenterology
PROC: 0DJD8ZZ Inspection of Lower Intestinal Tract, Via Natural or Artificial Opening Endoscopic (ICD-10-PCS; CPT 45378; principal; 2024-06-05 11:10)
DX: Z12.11 Encounter for screening for malignant neoplasm of colon (principal); Z80.0 Family history of malignant neoplasm of digestive organs; K63.5 Polyp of colon; K62.1 Rectal polyp; K57.30 Diverticulosis of large intestine without perforation or abscess without bleeding; K64.8 Other hemorrhoids; Z79.899 Other long term (current) drug therapy; F41.9 Anxiety disorder, unspecified
CPT/HCPCS: 45385; 45380; 88305; J2704

== ENCOUNTER → 2024-06-05 09:56 | Outpatient (BNV) | payer OTHER, SELFPAY | PROVIDERS: PCP Family Medicine; Visit Provider Internal Medicine Gastroenterology | DX: Z12.11 Encounter for screening for malignant neoplasm of colon (principal); Z80.0 Family history of malignant neoplasm of digestive organs; K63.5 Polyp of colon; K62.1 Rectal polyp; K57.30 Diverticulosis of large intestine without perforation or abscess without bleeding; K64.8 Other hemorrhoids | CPT/HCPCS: 45380; 45385 ==

== ENCOUNTER 2025-04-14 07:31 | Outpatient (REF) | payer OTHER, SELFPAY ==
--- OUTSIDE RECORDS SUMMARY | 2025-04-14 07:33 | XMS_ITS | Clinical Summary ---
Author Organization [facility] Address [address] [place] [phone] Phone Care Team Providers Care Director Of Institutional Giving Name Role Phone Yara Villeda MD Primary Care Provider Allergies No known active allergies Medications methocarbamol (ROBAXIN) 500 MG tablet Take 1 tablet (500 mg total) by mouth 4 (four) times a day. 12 tablet 08/09/2019 Active Active Problems No known active problems Social History Tobacco Use Types Packs/Day Years Used Date Smoking Tobacco: Never Assessed Education Answer Date Recorded Are you interested in more education? Not on delmer e 01/15/2023 Are you concerned about learning? Not on file 01/15/2023 No 01/15/2023 No 01/15/2023 Digital Access Answer Date Recorded No 02/15/2023 No 02/15/2023 Reliable internet access at home? Not on file 02/15/2023 Device with a working camera? Not on file Sex and Gender Information Value Date Recorded Sex Assigned at Not on file Legal Sex Male 10:31 PM EDT Gender Identity Not on file Sexual Orientation Not on file Last Filed Vital Signs Vital Sign Reading Time Taken Comments Blood Pressure 145/94 08/09/2019 12:18 PM EST Pulse 73 08/09/2019 12:14 PM EST Temperature 37.1 C (98.7 F) 08/09/2019 12:14 PM EST Respiratory Rate 18 08/09/2019 12:14 PM EST Oxygen Saturation 98% 08/09/2019 12:14 PM EST Inhaled Oxygen Concentration - - Weight 81.6 kg (180 lb) 08/09/2019 12:14 PM EST Height 180.3 cm (5' 11 ) 08/09/2019 12:14 PM EST Body Mass Index 25.1 08/09/2019 12:14 PM EST Plan of Treatment Not on file Medical Devices Not on file [facility] POS [facility] POS [facility] Care Teams Director Of Institutional Giving Relationship Specialty Start Date End Date Yara Villeda MD [address] [place] [address] [place] [id number] PCP - General 09/23/17 Additional Source Comments The information contained in this document represents components of the legal health record. It is not the complete legal health record.[facility]
[2025-04-14 09:20] LABS: Alanine Aminotransferase 60 U/L (0-40); Albumin Level 4.6 g/dL (3.5-5.0); Alkaline Phosphatase 53 U/L (39-117); Anion Gap 11 (12-20); Aspartate Amino Transferase 36 U/L (5-37); Blood Urea Nitrogen 22 mg/dL (9-16); Calcium 9.0 mg/dL (8.4-10.2); Carbon Dioxide 26 mmol/L (22-29); Chloride 108 mmol/L (96-108); Cholesterol 188 mg/dL (<200); Estimated Glomerular Filt Rate > 60; HDL Cholesterol 40 mg/dL (>40); Potassium 4.2 mmol/L (3.3-5.1); Sodium 141 mmol/L (135-145); Total Protein 7.4 g/dL (6.5-8.0); Triglycerides 181 mg/dL (<150)
[2025-04-14 10:13] LABS: Appearance Urine Clear; Glucose Urine UA Negative (Negative); PH 7.5 (5.0-9.0); Specific Gravity - Urine 1.025 (1.005-1.025)
[2025-04-14 10:58] LABS: Microalbum/Creatinine Ratio Ur 2.5 ug/mg cr (<30)
== END 2025-04-14 07:32 | disposition home or self-care (01) ==
LOC: HO.LAB 07:31
PROVIDERS: PCP Family Medicine; Visit Provider Family Medicine
DX: Z00.00 Encounter for general adult medical examination without abnormal findings (principal); Z12.5 Encounter for screening for malignant neoplasm of prostate; E78.2 Mixed hyperlipidemia; I10 Essential (primary) hypertension
CPT/HCPCS: 36415; 80053; 80061; 81003; 82043; 82570; 84153; 84443

== ENCOUNTER 2025-04-18 15:25 | Outpatient (AMB) | payer OTHER, SELFPAY ==
--- NOTE | 2025-04-18 15:42 | MHC.PC.OV ---
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 Had started him on artovastatin 10mg daily. Labs drawn 04/14/25. Reviewed labs with pt. Triglycerides 181. TC 188. LDL 112. HDL 40. PSA 0.40. He is on artovastatin 10mg. PHQ-9 4, ARMIN-7 11 today. Pt reports significant stressors with the of his brother in law and family issues. Reports a lesion on his chest. 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 1. Little interest or pleasure in doing things: not at all 2. Feeling down, depressed, or hopeless: not at all 3. Trouble falling or staying asleep, or sleeping too much: more than half the days 4. Feeling tired or having little energy: more than half the days 5. Poor appetite or overeating: not at all 6. Feeling bad about yourself - or that you are a failure or have let yourself or your family down: not at all 7. Trouble concentrating on things, such as reading the newspaper or watching television: not at all 8. Moving or speaking so slowly that other people could have noticed. Or the opposite - being so fidgety or restless that you have been moving around a lot more than usual: not at all 9. Thoughts that you would be better off or of hurting yourself in some way: not at all Total score: 4 Source: Developed by Drs. Gigi Rae, Linh Felix, Erasmo West and colleagues, with an educational roula from [employer]. Thrive Questionnaire Date Thrive assessed: 10/18/23 I am a: Patient What is your living situation today?: I do not have a steady places to live I choose not to answer this question Within the past 12 months, did the food you bought not last and you didn't have the money to get more?: Never true Within the past 12 months, did you worry whether your food would run out before you got money to buy more?: Never true Do you have trouble paying for medicines?: No Do you have trouble getting transportation to medical appointments?: No Do you have trouble paying your heating and electricity bill?: No Do you have trouble taking care of your child, family member or friend?: No Do you have trouble with day-to-day activities such as bathing, preparing meals, shopping, managing finances, etc.?: No Are you currently unemployed and looking for a job?: No Are you interested in more education?: No Please select the resources that you would like help with: None Currently or been in a relationship where the following occur: I choose not to answer THRIVE Score: 1 AUDIT C Alcohol Use Questionnaire (AUDIT-C) 1. How often do you have a drink containing alcohol?: 2-4 times a month 2. How many drinks containing alcohol do you have on a typical day when you are drinking?: 1 or 2 3. How often do you have six or more drinks on one occasion?: Never Total Score: 2 ARMIN-7 AMB Questionnaire ARMIN-7 Date ARMIN - 7 assessed: 12/20/23 Feeling nervous, anxious, or on edge: 2 = More than half the days Not being able to stop or control worryin = More than half the days Worrying too much about different things: 1 = Several days Trouble relaxin = More than half the days Being so restless that it is hard to sit still: 2 = More than half the days Becoming easily annoyed or irritable: 2 = More than half the days Feeling afraid as if something awful might happen: 0 = Not at all Total ARMIN-7 score (0-4 normal; 5-9 mild; 10-14 moderate; 15-21 severe): 11 Source: Developed by Drs. Gigi Rae, Linh Felix, Erasmo West and colleagues, with an educational roula from [employer]. Review of Systems Const Denies chills, Denies fatigue, Denies fever(s), Denies headache(s) and Denies weakness ENT Denies dizziness and Denies headache(s) Card Denies chest pain, Denies lightheadedness, Denies dyspnea and Denies other (Palpitations) Resp Denies cough, Denies dyspnea, Denies wheezing and Denies other ( shortness of breath) Musc Denies numbness and Denies tingling Neuro Denies dizziness, Denies headache(s), Denies numbness, Denies tingling, Denies paresthesias and Denies weakness Psych Denies anxiety and Denies depression Endo Denies fatigue Aller/Immun Denies wheezing Physical exam (Primary Care) Vital Signs: Last Vital Signs Temp 98.3 F 04/18/25 15:48 Pulse 72 04/18/25 15:48 Resp 14 04/18/25 15:48 BP 116/60 04/18/25 15:48 Pulse Ox 96 04/18/25 15:48 Oxygen Delivery Method Room Air 04/18/25 15:48 BMI result Body Mass Index 24.7 Tobacco/Smoking Status: Tobacco use Status Tobacco use date assessed 11/02/23 04/18/25 15:50 Patient Tobacco Use Status Never used Tobacco 04/18/25 15:50 Tobacco use type 11/26/23 11:38 e-Cigarette/Vaping Use Never Used 04/18/25 15:50 PHQ-9: PHQ-9 Score PHQ-9: Total score 4 04/18/25 16:14 Thrive Assessment: Date of Thrive Assessment Date Thrive assessed 10/18/23 04/18/25 15:50 Currently or been in a relationship where the following occur: I choose not to answer Const General: no acute distress and well developed Nutritional Appearance: well nourished Orientation/consciousness: patient oriented x3 HENMT Head: Yes normocephalic and Yes atraumatic Eyes General: appearance normal, both eyes and all related structures Pupils: Equal, round and reactive pupils present EOM: EOMs intact bilaterally Resp Effort & Inspection: normal respiratory effort Auscultation: clear to auscultation bilaterally Cardio Rate: regular rate Rhythm: regular rhythm Heart sounds: S1 normal heart sound present, S2 normal heart sound present, no gallops, no murmurs and no rubs Neuro General: patient oriented x3 and gait normal Cranial nerves: Yes Equal, round and reactive pupils present Psych Affect: normal affect Coding Level of Care Code Est Pt Level 4 (91269) Diagnoses Mixed hyperlipidemia E78.2 Anxiety and depression F41.9; F32.A Neoplasm of uncertain behavior of skin D48.5 Assessment & Plan Assessment & Plan (1) Mixed hyperlipidemia: Code(s): E78.2 - Mixed hyperlipidemia Category: Medical Plan: LDL cholesterol has risen again. Patient says he has been taking atorvastatin 10 mg daily. Will increase this to 20 mg daily Will recheck with next blood draw (2) Anxiety and depression: Code(s): F41.9 - Anxiety disorder, unspecified; F32.A - Depression, unspecified Category: Medical Plan: Patient notes that he is under more stress with the of his [id number]-mr-uaf and issues with his son's mental health. Will increase sertraline to 150 mg daily Briefly discussed therapist. He can let me know if he would like to be connected with a therapist. (3) Neoplasm of uncertain behavior of skin: Code(s): D48.5 - Neoplasm of uncertain behavior of skin Category: Medical Plan: Melanotic Lesion on his chest about 1 cm in diameter with slightly irregular coloration Referred to dermatology Orders: Orders Lipid Panel Today E78.2 - Mixed hyperlipidemia, Z00.00 - Encounter for general adult medical examination without abnormal findings Comprehensive Roann. Panel Fast Today E78.2 - Mixed hyperlipidemia, Z00.00 - Encounter for general adult medical examination without abnormal findings Referrals Dermatology Referral D48.5 - Neoplasm of uncertain behavior of skin Medications: Changed From atorvastatin 10 mg PO BEDTIME 90 tabs 0RF E78.2 - Mixed hyperlipidemia To atorvastatin 20 mg PO BEDTIME 90 tabs 3RF 90 days E78.2 - Mixed hyperlipidemia From sertraline 100 mg PO DAILY 90 days 90 tabs 2RF To sertraline 150 mg (1.5 x 100 mg) PO DAILY 135 tabs 2RF 90 days Refilled hydroxyzine HCl 50 mg PO DAILY PRN 30 tabs 0RF anxiety 30 days
[2025-04-18 15:48] VITALS: BP 116/60; PULSE 72; RESP 14; TEMP 36.8; O2SAT 96; BMI 24.7
--- OUTSIDE RECORDS SUMMARY | 2025-04-18 16:05 | XMS_ITS | Clinical Summary ---
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 HMO POS [facility] Care Teams Aquaculture Farm Manager Relationship Specialty Start Date End Date Yara Villeda MD [address] [place] [address] [place] [address] PCP - General 09/23/17 Additional Source Comments The information contained in this document represents components of the legal health record. It is not the complete legal health record.[facility]
== END 2025-04-18 16:34 | disposition home or self-care (01) ==
LOC: HO.HMCFM 15:26
PROVIDERS: PCP Family Medicine; Visit Provider Family Medicine
DX: E78.2 Mixed hyperlipidemia (principal); F41.9 Anxiety disorder, unspecified; F32.A Depression, unspecified; D48.5 Neoplasm of uncertain behavior of skin

== ENCOUNTER 2025-06-09 08:02 | Outpatient (REF) | payer OTHER, SELFPAY ==
--- OUTSIDE RECORDS SUMMARY | 2025-06-09 08:12 | XMS_ITS | Clinical Summary ---
Author Organization [facility] Address [address] [facility] [address] [place] [phone] Phone Care Team Providers Care Marketing Compliance Manager Name Role Phone Yara Villeda MD [...] file Medical Devices Not on file [facility] POS [facility] Care Teams Marketing Compliance Manager Relationship Specialty Start Date End Date Yara Villeda MD [address] [place] [address] [place] [address] PCP - General 09/23/17 Additional Source Comments The information contained in this document represents components of the legal health record. It is not the complete legal health record.[facility]
[2025-06-09 09:11] LABS: Albumin Level 4.5 g/dL (3.5-5.0); Alkaline Phosphatase 45 U/L (39-117); Anion Gap 11 (12-20); Aspartate Amino Transferase 23 U/L (5-37); Blood Urea Nitrogen 20 mg/dL (9-16); Calcium 9.1 mg/dL (8.4-10.2); Carbon Dioxide 29 mmol/L (22-29); Chloride 105 mmol/L (96-108); Cholesterol 177 mg/dL (<200); Estimated Glomerular Filt Rate > 60; HDL Cholesterol 47 mg/dL (>40); Potassium 4.4 mmol/L (3.3-5.1); Sodium 141 mmol/L (135-145); Total Protein 7.1 g/dL (6.5-8.0); Triglycerides 73 mg/dL (<150)
[2025-06-09 09:33] LABS: Alanine Aminotransferase 40 U/L (0-40)
== END 2025-06-09 08:03 | disposition home or self-care (01) ==
LOC: HO.LAB 08:02
PROVIDERS: PCP Family Medicine; Visit Provider Family Medicine
DX: Z00.00 Encounter for general adult medical examination without abnormal findings (principal); E78.2 Mixed hyperlipidemia
CPT/HCPCS: 36415; 80053; 80061

== ENCOUNTER 2025-06-21 14:42 | Outpatient (AMB) | payer OTHER, SELFPAY ==
--- NOTE | 2025-06-21 14:49 | A.OFFPC_ITS ---
Vital Signs 06/21/25 14:57 Height 5 ft 11 in Weight 175 lb 6 oz BMI 24.5 BP 110/80 Blood Pressure Location Rt brachial Position Sitting Respiration 14 Pulse 64 Pulse Source Pulse Oximeter Temp 98.5 F Temp Source Temporal Artery Scan Pulse Oximetry (%) 97 Oxygen Delivery Method Room Air Intake Visit Reasons: 2-3 m fu liver enzymes/anxiety Intake Note: Madan presents in the office today for a follow up to his liver enzymes and anxiety. Allergies No Known Allergies Allergy (Verified 06/21/25 14:53) Medication List - Last Reconciled 06/21/25 by Williams Lentz MD atorvastatin 20 mg PO BEDTIME 90 days hydroxyzine HCl 50 mg PO DAILY PRN 30 days sertraline 150 mg (1.5 x 100 mg) PO DAILY 90 days Tobacco use date assessed: 06/21/25 Dental Screening Dental Screen Date: 06/21/25 Did you have a dental visit in the last 12 months?: Yes Did you have a dental problem in the last 6 months where you did not have access to dental care?: No Was dental information given to patient?: Patient has dentist HPI 2-3 m fu liver enzymes/anxiety HPI Details 50 y/o male presents to f/u HLD, anxiety , liver enzymes. Had increased sertraline from 100mg daily to 150mg daily last office visit. Had increased artovastatin from 10mg to 20mg daily. Labs drawn 06/09/25. Reviewed labs with pt. Fasting glucose 102. Triglycerides 73. TC 177. LDL 116. HDL 47. HPI Comments History of Present Illness Details Documentation assistance for Williams Lentz MD, was provided by Jak Parnell, Power Digger Operator on 06/21/2025 at 3:01 PM EST. I, Dr. Lentz, have read, observed, and verified documentation. [facility] Surgical History (Updated 06/05/24 @ 12:12 by Marge Padilla MD) H/O hernia repair Social History (Updated 06/21/25 @ 14:55 by Sarah Elder CMA) Housing: House Are you a primary out of school hours care worker to a significant other at home: No Do you presently have visiting nurse or other home services: No Alcohol intake: current Comment: Once a week Patient Tobacco Use Status: Never used Tobacco e-Cigarette/Vaping Use: Never Used Second Hand Smoke Exposure: No Use of substances other than those prescribed or required for medical reasons: Yes Substance Use Type: Marijuana service: No Current occupational status: employed 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 Current occupational exposures/hazards: No Cognitive needs: No Hearing needs: No Vision needs: Yes Questionnaire Thrive Questionnaire Date Thrive assessed: 03/25/25 I am a: Patient What is your living situation today?: I do not have a steady places to live I choose not to answer this question Within the past 12 months, did the food you bought not last and you didn't have the money to get more?: Never true Within the past 12 months, did you worry whether your food would run out before you got money to buy more?: Never true Do you have trouble paying for medicines?: No Do you have trouble getting transportation to medical appointments?: No Do you have trouble paying your heating and electricity bill?: No Do you have trouble taking care of your child, family member or friend?: No Do you have trouble with day-to-day activities such as bathing, preparing meals, shopping, managing finances, etc.?: No Are you currently unemployed and looking for a job?: No Are you interested in more education?: No Please select the resources that you would like help with: None Currently or been in a relationship where the following occur: I choose not to answer THRIVE Score: 1 ARMIN-7 AMB Questionnaire ARMIN-7 Date ARMIN - 7 assessed: 06/21/25 Feeling nervous, anxious, or on edge: 3 = Nearly every day Not being able to stop or control worryin = Several days Worrying too much about different things: 1 = Several days Trouble relaxin = Several days Being so restless that it is hard to sit still: 0 = Not at all Becoming easily annoyed or irritable: 1 = Several days Feeling afraid as if something awful might happen: 0 = Not at all Total ARMIN-7 score (0-4 normal; 5-9 mild; 10-14 moderate; 15-21 severe): 7 Source: Developed by Drs. Gigi Rae, Linh Felix, Erasmo West and colleagues, with an educational roula from [employer] ARMIN-7 Assessment Billing ARMIN-7 Assessment Tool: ARMIN-7 Assessment 65720 Review of Systems Const Denies chills, Denies fatigue, Denies fever(s), Denies headache(s) and Denies weakness ENT Denies dizziness and Denies headache(s) Card Denies dyspnea Resp Denies cough, Denies dyspnea, Denies wheezing and Denies other (shortness of breath) Musc Denies numbness and Denies tingling Neuro Denies dizziness, Denies headache(s), Denies numbness, Denies tingling and Denies weakness Psych Denies anxiety and Denies depression Endo Denies fatigue Aller/Immun Denies wheezing Physical exam (Primary Care) Vital Signs: Last Vital Signs Temp 98.5 F 06/21/25 14:57 Pulse 64 06/21/25 14:57 Resp 14 06/21/25 14:57 BP 110/80 06/21/25 14:57 Pulse Ox 97 06/21/25 14:57 Oxygen Delivery Method Room Air 06/21/25 14:57 BMI result Body Mass Index 24.5 Tobacco/Smoking Status: Tobacco use Status Tobacco use date assessed 06/21/25 06/21/25 15:00 Patient Tobacco Use Status Never used Tobacco 06/21/25 14:55 Tobacco use type 11/26/23 11:38 e-Cigarette/Vaping Use Never Used 06/21/25 14:55 Thrive Assessment: Date of Thrive Assessment Date Thrive assessed 03/25/25 06/21/25 14:52 Currently or been in a relationship where the following occur: I choose not to answer Const General: well developed; No acute distress Nutritional Appearance: well nourished Orientation/consciousness: [facility]: Yes normocephalic and Yes atraumatic Eyes General: appearance normal, both eyes and all related structures Pupils: Equal, round and reactive pupils present EOM: EOMs intact bilaterally Resp Effort & Inspection: normal respiratory effort Auscultation: clear to auscultation bilaterally Cardio Rate: regular rate Rhythm: regular rhythm Heart sounds: S1 normal heart sound present, S2 normal heart sound present, no gallops, no murmurs and no rubs Neuro General: patient oriented x3 and gait normal Cranial nerves: Yes Equal, round and reactive pupils present Psych Affect: normal affect Coding Level of Care Code Est Pt Level 4 (87621) Diagnoses Mixed hyperlipidemia E78.2 Elevated fasting glucose R73.01 Anxiety and depression F41.9; F32.A Elevated ALT measurement R74.01 Additional Codes ARMIN-7 Assessment Billing - ARMIN-7 Assessment Tool: ARMIN-7 Assessment 54841 ([id number]) Assessment & Plan Assessment & Plan (1) Mixed hyperlipidemia: Code(s): E78.2 - Mixed hyperlipidemia Category: Medical Plan: Lipids still above goal of less than 100 Continue current medication regimen and work at a diet lower in saturated fats and cholesterol (2) Elevated fasting glucose: Code(s): R73.01 - Impaired fasting glucose Category: Medical Plan: Mildly elevated fasting blood sugar, 102 Work on diet lower in sugars and starches will recheck fasting blood sugar and A1c with next blood draw (3) Anxiety and depression: Code(s): F41.9 - Anxiety disorder, unspecified; F32.A - Depression, unspecified Category: Medical Plan: Improved on sertraline 150 mg daily and has hydroxyzine available Continue current medication Did discuss therapy. Patient can think about this and me know if he would like to pursue it (4) Elevated ALT measurement: Code(s): R74.01 - Elevation of levels of liver transaminase levels Category: Medical Plan: Resolved Continue good hydration Plan Also, likely IBS. Increase hydration; 64-72 oz of water per day Trial as soluble fiber such as FiberCon once a day in the morning Orders: Orders Hemoglobin A1c Today R73.01 - Impaired fasting glucose Lipid Panel Today E78.2 - Mixed hyperlipidemia, Z00.00 - Encounter for general adult medical examination without abnormal findings Influenza [id number] Immunization Today Z23 - Encounter for immunization Comprehensive Fidelity. Panel Fast Today E78.2 - Mixed hyperlipidemia, Z00.00 - Encounter for general adult medical examination without abnormal findings Medications: New Fluarix [id number] (PF) (flu vac ts (6mos up)-PF) 0.5 mL IM ONCE 0.5 mL 0RF NS Z23 - Encounter for immunization
[2025-06-21 14:57] VITALS: BP 110/80; PULSE 64; RESP 14; TEMP 36.9; O2SAT 97; BMI 24.5
== END 2025-06-21 15:30 | disposition home or self-care (01) ==
LOC: HO.HMCFM 14:43
PROVIDERS: PCP Family Medicine; Visit Provider Family Medicine
DX: E78.2 Mixed hyperlipidemia (principal); R73.01 Impaired fasting glucose; F41.9 Anxiety disorder, unspecified; F32.A Depression, unspecified; R74.01 Elevation of levels of liver transaminase levels; Z23 Encounter for immunization

== ENCOUNTER → 2025-06-21 14:42 | Outpatient (BNVA) | payer OTHER, SELFPAY | PROVIDERS: PCP Family Medicine; Visit Provider Family Medicine | DX: E78.2 Mixed hyperlipidemia (principal); R73.01 Impaired fasting glucose; F41.9 Anxiety disorder, unspecified; E78.5 Hyperlipidemia, unspecified; F32.A Depression, unspecified; R74.01 Elevation of levels of liver transaminase levels; Z23 Encounter for immunization | CPT/HCPCS: 90471; 90656; 96127 ==